=== PATIENT | male | born 2000 | race Caucasian/White ===

== ENCOUNTER 2024-01-21 02:11 | Emergency (ER) | payer OTHER ==
[~2024-01-21] VITALS: Ht 182.9 cm; Wt 99.1 kg
[2024-01-21] MEDS ORDERED: ACET-683 PO (02:19)
[2024-01-21] MEDS: ACETAMINOPHEN TAB 650MG DOSE (2X325MG) PO ONE (10:46)
[2024-01-21] MEDS: AZITHROMYCIN 250MG TABLET PO ONE (12:06)
[2024-01-21] MEDS: cefTRIAXone SOD 1 GM in D5W MINI-BAG PLUS 50 ML IV ONE (12:07)
[2024-01-21 12:30] VITALS: BP 124/65; TEMP 98.2; O2SAT 96
[2024-01-21] MEDS ORDERED: AZIT-10 PO (12:30)
== END 2024-01-21 12:49 | disposition home or self-care (01) ==
LOC: M ED 02:11
DX: J18.9 Pneumonia, unspecified organism (principal)
CPT/HCPCS: 71046; 87486; 87581; 87633; 87798; 96365; 99284; J0696